=== PATIENT | male | born 1990 ===

== ENCOUNTER 2017-12-21 00:06 | Inpatient (IN) | payer MEDICAID, OTHER ==
--- NOTE | 2017-12-21 01:06 | C.PDOC ---
History Of Present Illness 27 yeas old male with Hx of bipolar disorder presents to ED for paranoid ideation. Denies any other physical complaints. Patient is loud, combative and agitated in ER. Time Seen by Provider: 12/21/17 01:05 Chief Complaint (Nursing): Psychiatric Evaluation History Per: Patient History/Exam Limitations: no limitations Onset/Duration Of Symptoms: Hrs Current Symptoms Are (Timing): Still Present Suicide/Self Injury Attempted (Context): None Modifying Factor(s): None Associated Symptoms: Agitation. denies: Suicidal Thoughts, Suicidal Plan Involuntary Hold By: None Recent travel outside of the [place]: No Past Medical History Reviewed: Historical Data, Nursing Documentation, Vital Signs Vital Signs: Last Vital Signs Temp 98.5 F 12/21/17 05:27 Pulse 81 12/21/17 05:27 Resp 16 12/21/17 05:27 BP 145/76 12/21/17 05:27 Pulse Ox 98 12/21/17 05:27 - Medical History PMH: Anxiety, Bipolar Disorder Surgical History: No Surg Hx Family History: States: No Known Family Hx - Social History Hx Alcohol Use: No Hx Substance Use: No - Immunization History Hx Tetanus Toxoid Vaccination: No Hx Influenza Vaccination: No Hx Pneumococcal Vaccination: No Review Of Systems Constitutional: Negative for: Fever, Chills Gastrointestinal: Negative for: Nausea, Vomiting, Abdominal Pain, Diarrhea Skin: Negative for: Rash Neurological: Negative for: Weakness, Numbness Psych: Positive for: Other (Paranoid ideation ). Negative for: Suicidal ideation Physical Exam - Physical Exam Appears: Non-toxic, No Acute Distress, Combative, Agitated Skin: Warm, Dry Head: Normacephalic Eye(s): bilateral: Normal Inspection Oral Mucosa: Moist Neck: Supple Chest: Symmetrical Cardiovascular: Rhythm Regular Respiratory: No Rales, No Rhonchi, No Wheezing Gastrointestinal/Abdominal: Soft, No Tenderness, No Distention Extremity: Normal ROM Extremity: Bilateral: Atraumatic, Normal Color And Temperature, Normal ROM Neurological/Psych: Oriented x3, Normal Speech (Speaking in full sentences ), Other (No focal deficits ) Gait: Steady ED Course And Treatment - Laboratory Results Result Diagrams: 12/21/17 01:15 12/21/17 01:15 O2 Sat by Pulse Oximetry: 98 (RA) Pulse Ox Interpretation: Normal Progress Note: Administered Ativan and Geodon Cap. Ordered blood work and urinalysis. Crisis notified. Disposition Discussed With Dr.: Lyndon Welch Comment: accepted the pt on his service and took over the care at 5:37 AM Doctor Will See Patient In The: Hospital Counseled Patient/Family Regarding: Studies Performed, Diagnosis - Disposition Disposition: HOSPITALIZED Disposition Time: 01:06 Condition: FAIR Forms: [facility] ([place]) - POA Present On Arrival: Poor Glycemic Control - Clinical Impression Clinical Impression: Manic bipolar I disorder - Scribe Statement The provider has reviewed the documentation as recorded by the Scribe Vandana Esparza All medical record entries made by the Scribe were at my direction and personally dictated by me. I have reviewed the chart and agree that the record accurately reflects my personal performance of the history, physical exam, medical decision making, and the department course for this patient. I have also personally directed, reviewed, and agree with the discharge instructions and disposition. Decision To Admit - Pt Status Changed To: Hospital Disposition Of: Inpatient - Admit Certification Admit to Inpatient:: After my assessment, the patient will require hospitalization for at least two midnights. This is because of the severity of symptoms shown, intensity of services needed, and/or the medical risk in this patient being treated as an outpatient. - InPatient: Physician Admission Certification: I certify that this patient requires 2 or more midnights of care for the following reason:: After my assessment, the patient will require hospitalization for at least two midnights. This is because of the severity of symptoms shown, intensity of services needed, and/or the medical risk in this patient being treated as an outpatient. - . Bed Request Type: Psychiatry Admitting Physician: Lyndon Welch Patient Diagnosis: Manic bipolar I disorder
[2017-12-21 01:20] LABS: BASO % 0.5 % (0.0-2.0); EOS % 0.4 % (0.0-4.0); HEMOGLOBIN 15.3 g/dL (12.0-18.0); LYMPH # 2.4 K/uL (1.0-4.3); LYMPH % 24.6 % (20.0-40.0); MEAN CELL VOLUME 88.8 fL (80.0-94.0); MEAN CORPUSCULAR HEMOGLOBIN 30.9 pg (27.0-31.0); MEAN CORPUSCULAR HGB CONC 34.8 g/dL (33.0-37.0); MEAN PLATELET VOLUME 8.4 fL (7.2-11.7); MONO # 0.6 K/uL (0.0-0.8); MONO % 5.7 % (0.0-10.0); NEUT # 6.8 K/uL (1.8-7.0); NEUT % 68.8 % (50.0-75.0); RBC 4.94 Mil/uL (4.40-5.90); RED CELL DISTRIBUTION WIDTH 13.9 % (11.5-14.5); WHITE BLOOD COUNT 9.9 K/uL (4.8-10.8)
[2017-12-21 01:29] LABS: SQUAMOUS EPITHIAL < 1 /hpf (0-5); URINE BILIRUBIN NEGATIVE (NEGATIVE); URINE BLOOD NEGATIVE (NEGATIVE); URINE CLARITY Clear (Clear); URINE COLOR Yellow (YELLOW); URINE GLUCOSE (UA) NORMAL (Normal); URINE LEUKOCYTE ESTERASE NEG Leu/uL (Negative); URINE PROTEIN NEGATIVE (NEGATIVE)
[2017-12-21 01:34] LABS: ALB/GLOB RATIO 1.6 (1.0-2.1); ALT/SGPT 45 U/L (21-72); AST/SGOT 30 U/L (17-59); BLOOD UREA NITROGEN 32 mg/dL (9-20); CALCIUM 9.4 mg/dl (8.6-10.4); GFR AFRICAN-AMERICAN > 60; GFR NON-AFRICAN AMERICAN > 60
[2017-12-21 01:43] LABS: BARBITURATES, UR NEGATIVE (NEGATIVE); BENZODIAZEPINES, UR NEGATIVE (NEGATIVE); OPIATES, UR NEGATIVE (NEGATIVE); PHENCYCLIDINE, UR NEGATIVE (NEGATIVE)
--- NOTE | 2017-12-21 10:43 | PCM.BM ---
<La Wick - Last Filed: 12/21/17 10:46> Treatment Plan Problems - Problems identified on initial assessmt ineffective coping related to suicidal thoughts Date Initiated: 12/21/17 Time Initiated: 10:45 Assessment reference: NA Status: Active Treatment assets and liabiliti Patient Assests: cooperative, educated, ADL independent, good support system Patient Liabilities: financial problems - Milieu Protocol Maintain good personal hygiene: daily Encourage regular showers, daily Remind patient to perform daily oral care, every shift Assist patient to perform ADL's Conduct patient checks and document Observation sheet: Q15 minutes Maintain personal safety: every shift Educate patient to report safety concerns to staff, every shift Monitor environment for contraband/sharps Medication safety: Monitor for expected outcome, potential side effects: every shift, Assess barriers to learning: every shift, Assess readiness for medication education: every shift <Erin Gee - Last Filed: 12/23/17 14:09> Family Contact Family involvement: Patient does not wish Family/SO involvement Family contact: Patient declines to allow family contact at present - Goals for Treatment Patient goals for treatment: "I want to return to [facility]. " Discharge/Continuing Care - Education Needs Education Needs: Patient Medication, Patient Diagnosis/Disease Process, Patient Coping Skills - Discharge Discharge Criteria: Free of Suicidal thoughts, Free of paranoid thoughts, Free of agitation, Normal sleep pattern, Ability to care for self, No longer exhibiting s/s of withdrawal, Reduction of target symptoms Discharge to:: Home, With Family - Treatment Team Participation Discussed with Family/SO: No Was Patient/Family/SO present at Treatment Team Meeting: Yes <Lyndon Welch - Last Filed: 12/23/17 18:28> - Diagnosis (1) Severe manic bipolar 1 disorder with psychotic behavior Status: Acute Interventions: 12/23/17 18:28 * Assess/adjust medications daily and /or as needed * See patient on an individual basis 7x/week to assess symptoms of depression * Monitor for side effects & effectiveness of medications
--- NOTE | 2017-12-21 11:27 | PCM.PSYCH ---
Initial Psychiatric Evaluation - Initial Psychiatric Evaluation Type of Admission: Voluntary Legal Status: Capacity Chief Complaint (in patient's own words): People are bugging me History of Present Illness and Precipitating Events: Pt. is a 27 y/o employed male admitted in the hospital for Bipolar disorder. Pt was uncooperative, loud and reluctant to provide information. He stated that people are bugging him a lot including neighbors who are monitoring his activities and tried to hurt him. He stated that he is not able to sleep at [facility] due to racing thought for 3 days. Pt stated his medication Depakote Olanzapine was not helpful and Paroxetine make him calm down. He appeared with elated, speech is pressure, and expansive mood, He is walking here and there in the unit. He needs redirection. Per chart reviewed in ER pt informed his family that he wanted to come to ED because he was talking too much and not sleeping. Family also reports that Pt. has been paranoid and accusing the neighbors of talking about him. Pt. is presently attending outpatient treatment. Pt. does not remember the address where he sees his psychiatrist. Pt. reports taking Depakote 500mg PO; Paxil 20mg PO BID; Seroquel and Risperdal. Pt. does not know of the doses of the last two medications. Pt.'s reports dealing with a lot of stress at work. Pt. reports that he works for [employer]. Pt. reports that he lives with his mother and father and younger sister and older brother. Pt. reports that he graduated from high school and did one year of community college. Pt. reports that he does not know what career he plans to pursue. Pt. was cooperative and manic in the ED. Pt. was medicated with both Ativan and Geodon. Pt. denies any history of drugs or S/H ideation. Pt. also admits to auditory hallucinations. Pt. denies history of violence and arrest. Pt. wore glasses and he maintained sporadic eye contact. Pt. mood was anxious and affect was guarded. Past Psychiatric History - Past Psychiatric History At [facility]: pt refuse to answer. Per chart review he had [facility] History of Abuse: denied History of ETOH/Drug Use: denied History of Family Illness: Pt.s family reports that Pt. older brother also suffers from mental illness. Brother returned from the service and has been receiving psychiatric treatment. Pt.s grandfather also suffers from schizophrenia. Pertinent Medical Hx (Current Medical&Sleep Prob, Allergies): Allergies Allergy/AdvReac Type Severity Reaction Status Date / Time No Known Allergies Allergy Unverified 12/21/17 00:10 Clonazepam [Klonopin] 0.5 mg PO DAILY 12/21/17 Divalproex [Depakote ER] 500 mg PO DAILY 12/21/17 Review of Systems - Review of Systems All systems: reviewed and no additional remarkable complaints except (please see HPI) Mental Status Examination - Personal Presentation Personal Presentation: Looks stated age, Dressed appropriate to season - Affect Affect: Constricted - Motor Activity Motor Activity: Psychomotor Agitation - Reliability in Providing Information Reliability in Providing Information: Poor, due to alteration in thoughts, Poor , due to altered mood - Speech Speech: Disorganized - Mood Mood: Anxious, Euphoric (elated mood) - Formal Thought Process Formal Thought Process: Hallucinations, Delusions, Paranoia - Hallucinations/Delusions Hallucinations: Auditory - Obsessions/Compulsions Obsessions: None Compulsions: None - Cognitive Functions Orientation: Person, Place, Situation, Time Sensorium: Alert Attention/Concentration: Easily distracted Judgement: Imparied, as evidence by: Lack of insight into illness, Intact, as evidence by: Insight regarding need for hospitalization Memory: Recent intact, as evidence by: Ability to recall events of the day - Risk Risk: Diminished functioning - Strength & Assets Inventory Strength & Assets Inventory: Family support, Interests/hobbies - Limitations Limitations: Other (mental illness) DSM 5 DX - DSM 5 DSM 5 Diagnosis: Bipolar 1 D/o mre manic with psychotic features r/o Schizoaffective disorder - Recommended/Plan of Treatment Treatment Recommendations and Plan of Treatment: Start Risperdal 0.5 mg po BID for mood stabilization and psychosis Will titrate his medication according to his response. PRN meds for psychosis and alis Psychoeducation Supportive therapy provided Medication benefits and side effects discussed with the pt. Will consider to start [place] for his manic symptoms. Monitor vitals. Refer to after care plan Time 33 minutes
[2017-12-23] MEDS: Divalproex 500 mg DR Tab PO SCH ×2 (01:01→22:36)
--- NOTE | 2017-12-23 18:32 | PCM.PYCHPN ---
Psychiatric Progress Note - Psychiatric Progress Note Patient seen today, length of contact: 15 minutes Patient Chief Complaint: My neighbors were talking about me. Problems Identified/Issues Discussed: Patient seen, chart reviewed, case discussed with the staff. Issues related to illness and treatment were discussed with the patient and the staff. Reported compliant with treatment with no adverse affects. Tolerating treatment very well. During evaluation patient was hypomanic, irritable, disorganized, paranoid and partially cooperative. Reported not feeling better and also decreased sleep. At the time of evaluation patient was awake alert oriented 3, was delusional and paranoid, no auditory or visual hallucinations and no suicidal ideation or homicidal ideations. Medical Problems: None reported Diagnostic Results: Reviewed Medication Change: No Medical Record Reviewed: Yes Mental Status Examination - Cognitive Function Orientation: Person, Place, Situation, Time Memory: Intact Attention: WNL Concentration: WNL Association: Loose Fund of Knowledge: WNL Decription of patient's judgement and insights: Poor - Mood Mood: Other (Angry) - Affect Affect: Flat - Speech Speech: Appropriate - Formal Thought Process Formal Thought Process: Delusions, Paranoia, Loosening of associations, Flight of ideas - Suicidal Ideation Suicidal Ideation: No - Homicidal Ideation Homicidal Ideation: No Goal/Treatment Plan - Goal/Treatment Plan Need for Continued Stay: Remain at risks for inpatient hospitalization, Discharge may exacerbated symptoms, Severe functional impairment Progress Toward Problem(s) and Goals/Treatment Plan: Patient education. Supportive therapy. Continue treatment as before. Estimated Date of D/C: 12/30/17 - Smoking Cessation Smoking Cessation Initiated: No
--- NOTE | 2017-12-23 18:37 | PCM.PYCHPN ---
Psychiatric Progress Note - Psychiatric Progress Note Patient seen today, length of contact: 15 minutes Patient Chief Complaint: I'm feeling little better. When can I go home. Problems Identified/Issues Discussed: Patient seen, chart reviewed, case discussed with the staff. Issues related to illness and treatment were discussed with the patient and the staff. Reported compliant with treatment with no adverse affects. Tolerating treatment very well. During evaluation patient was less hypomanic, irritable, disorganized, paranoid and more cooperative. Reported feeling little better. Better sleep. At the time of evaluation patient was awake alert oriented 3, no delusional, no auditory or visual hallucinations and no suicidal ideation or homicidal ideations. Medical Problems: None reported Diagnostic Results: Reviewed DSM 5 Symptoms Update: Some improvement with treatment Medication Change: No Medical Record Reviewed: Yes Mental Status Examination - Cognitive Function Orientation: Person, Place, Situation, Time Memory: Intact Attention: WNL Concentration: WNL Association: [facility] Fund of Knowledge: [facility] Decription of patient's judgement and insights: Good - Mood Mood: Depressed - Affect Affect: Flat - Speech Speech: Appropriate - Formal Thought Process Formal Thought Process: Delusions, Paranoia - Suicidal Ideation Suicidal Ideation: No - Homicidal Ideation Homicidal Ideation: No Goal/Treatment Plan - Goal/Treatment Plan Need for Continued Stay: Remain at risks for inpatient hospitalization, Discharge may exacerbated symptoms, Severe functional impairment Progress Toward Problem(s) and Goals/Treatment Plan: Patient education. Supportive therapy. Continue treatment as before. Estimated Date of D/C: 12/30/17 - Smoking Cessation Smoking Cessation Initiated: No Reason for not providing: Patient doesn't smoke cigarettes
--- NOTE | 2017-12-24 14:38 | PCM.PYCHPN ---
Psychiatric Progress Note - Psychiatric Progress Note Patient seen today, length of contact: 15 minutes Patient Chief Complaint: I'm feeling little better. When can I go home. Problems Identified/Issues Discussed: Patient seen, chart reviewed, case discussed with the staff. Issues related to illness and treatment were discussed with the patient and the staff. Reported compliant with treatment with no adverse affects. Tolerating treatment very well. During evaluation patient was less hypomanic, irritable, disorganized, paranoid and more cooperative. Reported feeling little better. Better sleep. At the time of evaluation patient was awake alert oriented 3, no delusional, no auditory or visual hallucinations and no suicidal ideation or homicidal ideations. Medical Problems: None reported Diagnostic Results: Reviewed DSM 5 Symptoms Update: Improving with treatment Medication Change: No Medical Record Reviewed: Yes Mental Status Examination - Cognitive Function Orientation: Person, Place, Situation, Time Memory: Intact Attention: WNL Concentration: WNL Association: WN Fund of Knowledge: [facility] Decription of patient's judgement and insights: Good - Mood Mood: Depressed - Affect Affect: Flat - Speech Speech: Appropriate - Formal Thought Process Formal Thought Process: No Impairment Psychotic Thoughts and Behaviors: None - Suicidal Ideation Suicidal Ideation: No - Homicidal Ideation Homicidal Ideation: No Goal/Treatment Plan - Goal/Treatment Plan Need for Continued Stay: Remain at risks for inpatient hospitalization, Discharge may exacerbated symptoms, Severe functional impairment Progress Toward Problem(s) and Goals/Treatment Plan: Patient education. Supportive therapy. Continue treatment as before. Estimated Date of D/C: 12/30/17 - Smoking Cessation Smoking Cessation Initiated: No
[2017-12-24] MEDS: Divalproex 500 mg DR Tab PO SCH (21:07)
--- NOTE | 2017-12-25 18:02 | PCM.PYCHPN ---
Psychiatric Progress Note - Psychiatric Progress Note Patient seen today, length of contact: 15 minutes Patient Chief Complaint: I'm feeling better. Problems Identified/Issues Discussed: Patient seen, chart reviewed, case discussed with the staff. Issues related to illness and treatment were discussed with the patient and the staff. Reported compliant with treatment with no adverse affects. Tolerating treatment very well. Reported feeling better. Better sleep. Patient denied any delusions or hallucinations. Staff reported that patient is still paranoid. We'll increase the dose of Risperdal 2 mg twice a day. At the time of evaluation patient was awake alert oriented 3, no delusional, no auditory or visual hallucinations and no suicidal ideation or homicidal ideations. Medical Problems: None reported Diagnostic Results: Reviewed DSM 5 Symptoms Update: Improving with treatment Medication Change: No Medical Record Reviewed: Yes Mental Status Examination - Cognitive Function Orientation: Person, Place, Situation, Time Memory: Intact Attention: WNL Concentration: WNL Association: WN Fund of Knowledge: WN Decription of patient's judgement and insights: Good - Mood Mood: Depressed - Affect Affect: Flat - Speech Speech: Appropriate - Formal Thought Process Formal Thought Process: No Impairment Psychotic Thoughts and Behaviors: None - Suicidal Ideation Suicidal Ideation: No - Homicidal Ideation Homicidal Ideation: No Goal/Treatment Plan - Goal/Treatment Plan Need for Continued Stay: Remain at risks for inpatient hospitalization, Discharge may exacerbated symptoms, Severe functional impairment Progress Toward Problem(s) and Goals/Treatment Plan: Patient education. Supportive therapy. We will increase the dose of Risperdal to 1 mg twice a day. Continue rest of the treatment as before. Estimated Date of D/C: 12/30/17 - Smoking Cessation Smoking Cessation Initiated: No
[2017-12-25] MEDS: Divalproex 500 mg DR Tab PO SCH (22:16)
[2017-12-26 06:31] VITALS: O2SAT 100
[2017-12-26] MEDS: Divalproex 500 mg DR Tab PO SCH (21:11)
[2017-12-27] MEDS: Divalproex 500 mg DR Tab PO SCH ×2 (09:01→17:42)
[2017-12-28] MEDS: Divalproex 500 mg DR Tab PO SCH ×2 (10:03→17:59)
--- NOTE | 2017-12-28 14:28 | PCM.PYCHPN ---
Psychiatric Progress Note - Psychiatric Progress Note Patient seen today, length of contact: 15 minutes Patient Chief Complaint: I am doing fine.' Problems Identified/Issues Discussed: Patient seen and evaluated, chart reviewed and discussed with the nurse. Patient remained disorganized and internally preoccupied. Patient remained isolated, confined and withdrawn. He still reports of hearing voices. Patient still appears paranoid and delusional. He denies any suicidal ideation or homicidal ideation. He is taking medication and denies any side effects. Symptoms are improving but needs more time for stabilization. Supportive therapy and psychoeducation were given. Medication Change: No Medical Record Reviewed: Yes Mental Status Examination - Cognitive Function Orientation: Person, Place, Situation, Time Memory: Intact Attention: Poor Concentration: Poor Association: Loose Fund of Knowledge: Poor - Mood Mood: Depressed, Anxious - Affect Affect: Flat - Speech Speech: Appropriate - Formal Thought Process Formal Thought Process: Delusions, Paranoia, Loosening of associations - Suicidal Ideation Suicidal Ideation: No - Homicidal Ideation Homicidal Ideation: No Goal/Treatment Plan - Goal/Treatment Plan Need for Continued Stay: Remain at risks for inpatient hospitalization, Discharge may exacerbated symptoms, Severe functional impairment Progress Toward Problem(s) and Goals/Treatment Plan: Schizoaffective disorder Risperdal 2 mg po BID Depakote 250 mg PO BID Cogentin 1 mg PO BID Klonopn 1 mg PO BID Will titrate his medication according to his response. PRN meds for psychosis and alis Psychoeducation Supportive therapy provided Medication benefits and side effects discussed with the pt. Will consider to start [place] for his manic symptoms. Monitor vitals. Estimated Date of D/C: 12/30/17
[2017-12-29] MEDS: Divalproex 500 mg DR Tab PO SCH ×2 (09:41→18:00)
--- NOTE | 2017-12-29 16:51 | PCM.PYCHPN ---
Psychiatric Progress Note - Psychiatric Progress Note Patient seen today, length of contact: 15 minutes Patient Chief Complaint: I am doing fine.' Problems Identified/Issues Discussed: Mr. Gerber says he felt frustrated because he wants to leave and he doesn't understand why he is being kept. He said he screamed a little last night out of frustration saying, "that is how I express myself." He feels anxious just being in the hospital. He does not have suicidal/homicidal thoughts. He has gone to group activities. Other than frustration, he reports feeling largely unchanged since yesterday - his sleep is good, appetite good, thoughts are stable, amount of pacing is the same. Medication Change: No Medical Record Reviewed: Yes Mental Status Examination - Cognitive Function Orientation: Person, Place, Situation, Time Memory: Intact Attention: Poor Concentration: Poor Association: Loose Fund of Knowledge: Poor - Mood Mood: Depressed, Anxious - Affect Affect: Flat - Speech Speech: Appropriate - Formal Thought Process Formal Thought Process: Delusions, Paranoia, Loosening of associations - Suicidal Ideation Suicidal Ideation: No - Homicidal Ideation Homicidal Ideation: No Goal/Treatment Plan - Goal/Treatment Plan Need for Continued Stay: Remain at risks for inpatient hospitalization, Discharge may exacerbated symptoms, Severe functional impairment Progress Toward Problem(s) and Goals/Treatment Plan: Schizoaffective disorder Risperdal 2 mg po BID Depakote 250 mg PO BID Cogentin 1 mg PO BID Klonopn 1 mg PO BID Will titrate his medication according to his response. PRN meds for psychosis and alis Psychoeducation Supportive therapy provided Medication benefits and side effects discussed with the pt. Will consider to start [place] for his manic symptoms. Monitor vitals. Estimated Date of D/C: 12/30/17
[2017-12-30] MEDS: Divalproex 500 mg DR Tab PO SCH ×2 (10:03→17:11)
--- NOTE | 2017-12-30 11:39 | PCM.BM ---
<Elis Beltran - Last Filed: 12/30/17 11:38> Treatment Plan Problems - Problems identified on initial assessmt ineffective coping related to suicidal thoughts Date Initiated: 12/21/17 Time Initiated: 10:45 Assessment reference: NA Status: Active Treatment assets and liabiliti Patient Assests: cooperative, educated, ADL independent, good support system Patient Liabilities: financial problems - Milieu Protocol Maintain good personal hygiene: daily Encourage regular showers, daily Remind patient to perform daily oral care, every shift Assist patient to perform ADL's Conduct patient checks and document Observation sheet: Q15 minutes Maintain personal safety: every shift Educate patient to report safety concerns to staff, every shift Monitor environment for contraband/sharps Medication safety: Monitor for expected outcome, potential side effects: every shift, Assess barriers to learning: every shift, Assess readiness for medication education: every shift Milieu Narrative: Schizoaffective disorder Risperdal 2 mg po BID Depakote 250 mg PO BID Cogentin 1 mg PO BID Klonopn 1 mg PO BID Will titrate his medication according to his response. PRN meds for psychosis and alis Psychoeducation Supportive therapy provided Medication benefits and side effects discussed with the pt. Will consider to start [place] for his manic symptoms. Monitor vitals. Family Contact Family involvement: Patient does not wish Family/SO involvement Family contact: Patient declines to allow family contact at present - Goals for Treatment Patient goals for treatment: "I want to return to [facility]. " Discharge/Continuing Care - Education Needs Education Needs: Patient Medication, Patient Diagnosis/Disease Process, Patient Coping Skills - Discharge Discharge Criteria: Free of Suicidal thoughts, Free of paranoid thoughts, Free of agitation, Normal sleep pattern, Ability to care for self, No longer exhibiting s/s of withdrawal, Reduction of target symptoms Discharge to:: Home, With Family - Treatment Team Participation Patient/Family/SO Statement: Schizoaffective disorder Risperdal 2 mg po BID Depakote 250 mg PO BID Cogentin 1 mg PO BID Klonopn 1 mg PO BID Will titrate his medication according to his response. PRN meds for psychosis and alis Psychoeducation Supportive therapy provided Medication benefits and side effects discussed with the pt. Will consider to start [place] for his manic symptoms. Monitor vitals. Discussed with Family/SO: No Was Patient/Family/SO present at Treatment Team Meeting: Yes Treatment Plan Review - Problem ineffective coping related to suicidal thoughts Time Initiated: 10:45 - Discharge / Continuing Care Discharge to:: Home Behavioral Health Services: Partial hospital Health Needs: Medications/Rx <Katiuska Dukes - Last Filed: 12/30/17 11:44> Treatment Plan Review - Problem ineffective coping related to suicidal thoughts Date Initiated: 12/30/17 Progress toward outcomes: improved
[2017-12-31] MEDS: Divalproex 500 mg DR Tab PO SCH ×2 (10:01→17:27)
[2017-12-31] MEDS ORDERED: Paliperidone Palmitate 234 MG/1.5 ML SYR IM ONE (15:00)
--- NOTE | 2017-12-31 15:04 | PCM.PYCHPN ---
Psychiatric Progress Note - Psychiatric Progress Note Patient seen today, length of contact: 15 minutes Patient Chief Complaint: I am doing fine.' Problems Identified/Issues Discussed: Mr. Gerber is doing better than yesterday because he is no longer angry about not being discharged until Tuesday. Sleep okay, interest level okay, guilt over not helping brother, energy same, concentration is bad, appetite is bad, and he says he is talking faster. He does not have hallucinations, nor suicidal/ homicidal thoughts. His irritation is better than yesterday. Medication Change: No Medical Record Reviewed: Yes Mental Status Examination - Cognitive Function Orientation: Person, Place, Situation, Time Memory: Intact Attention: Poor Concentration: Poor Association: Loose Fund of Knowledge: Poor - Mood Mood: Depressed, Anxious - Affect Affect: Flat - Speech Speech: Appropriate - Formal Thought Process Formal Thought Process: Delusions, Paranoia, Loosening of associations - Suicidal Ideation Suicidal Ideation: No - Homicidal Ideation Homicidal Ideation: No Goal/Treatment Plan - Goal/Treatment Plan Need for Continued Stay: Remain at risks for inpatient hospitalization, Discharge may exacerbated symptoms, Severe functional impairment Progress Toward Problem(s) and Goals/Treatment Plan: Schizoaffective disorder Risperdal 2 mg po BID Depakote 250 mg PO BID Cogentin 1 mg PO BID Klonopn 1 mg PO BID Will titrate his medication according to his response. PRN meds for psychosis and alis Psychoeducation Supportive therapy provided Medication benefits and side effects discussed with the pt. Will consider to start [place] for his manic symptoms. Monitor vitals. Estimated Date of D/C: 12/30/17
[2018-01-01 06:46] VITALS: RESP 18
[2018-01-01] MEDS: Divalproex 500 mg DR Tab PO SCH ×2 (09:41→17:45)
[2018-01-02 06:53] VITALS: BP 104/65; PULSE 100; TEMP 97.6
[2018-01-02] MEDS: Divalproex 500 mg DR Tab PO SCH (10:18)
--- NOTE | 2018-01-02 10:48 | PCM.PYCHDC ---
Mental Status Examination - Mental Status Examination Orientation: Person, Place, Situation, Time Memory: Intact Mood: Neutral Affect: Constricted Speech: Soft Attention: WNL Concentration: WNL Association: WNL Fund of Knowledge: WNL Formal Thought Process: No Impairment Description of patient's judgement and insight: good, fair Psychotic Thoughts and Behaviors: denies any AVH Suicidal Ideation: No Current Homicidal Ideation?: No Discharge Summary - Discharge Note Consultations:: List each consultation separately and include: 1. Reason for request. 2. Findings. 3. Follow-up Summary of Hospital Course include:: 1. Description of specific treatment plan utilized for patients during their course of treatmen. 2. Summarize the time- course for resolution of acute symptoms and/or regressed behaviors. 3. Describe issues identified and worked on during hospitalization. 4. Describe medication utilized. 5. Describe medical problems identified and treated. 6. Reassessment of suicide risk - Final Diagnosis (DSM 5) Condition upon Discharge: FAIR Disposition: HOME/ ROUTINE Follow-up Treatment Plan: Schizoaffective disorder Risperdal 2 mg po BID Depakote 250 mg PO BID Cogentin 1 mg PO BID Klonopn 1 mg PO BID Will titrate his medication according to his response. PRN meds for psychosis and alis Psychoeducation Supportive therapy provided Medication benefits and side effects discussed with the pt. Will consider to start [place] for his manic symptoms. Monitor vitals. Prescriptions/Medication Reconciliation: Benztropine [Cogentin] 1 mg PO BID #60 tab Divalproex [Depakote DR] 500 mg PO BID #60 tcp Paliperidone Palmitate [Invega Sustenna] 234 mg IM ONCE #1 syr risperiDONE [RisperDAL Tab] 3 mg PO BID #60 tab traZODone [Desyrel] 100 mg PO HS PRN #30 tab PRN Reason: Insomnia
== END 2018-01-02 12:28 | disposition home or self-care (01) | DRG 430 ==
LOC: SUPCPDRO 00:06 → C.ER 00:06 → C.5E 05:36
PROC: GZHZZZZ Group Psychotherapy (ICD-10-PCS; principal; 2017-12-21)
PROC: GZ56ZZZ Individual Psychotherapy, Supportive (ICD-10-PCS; 2017-12-21)
DX: F25.9 Schizoaffective disorder, unspecified (principal); F31.13 Bipolar disorder, current episode manic without psychotic features, severe

== ENCOUNTER 2018-02-04 21:10 | Emergency (ER) | payer MEDICAID, OTHER ==
[2018-02-04 21:53] VITALS: RESP 16; TEMP 98
[2018-02-04] MEDS ORDERED: Divalproex 500 mg DR Tab PO STA (22:11)
[2018-02-04 22:19] LABS: SQUAMOUS EPITHIAL 1 /hpf (0-5); URINE BILIRUBIN NEGATIVE (NEGATIVE); URINE BLOOD NEGATIVE (NEGATIVE); URINE CLARITY Clear (Clear); URINE COLOR Yellow (YELLOW); URINE GLUCOSE (UA) NORMAL (Normal); URINE LEUKOCYTE ESTERASE NEG Leu/uL (Negative); URINE PROTEIN NEGATIVE (NEGATIVE)
[2018-02-04] MEDS ORDERED: Divalproex 500 mg DR Tab PO ONE (22:20)
[2018-02-04 22:25] LABS: BASO # 0.1 K/uL (0.0-0.2); EOS # 0.1 K/uL (0.0-0.7); LYMPH # 2.2 K/uL (1.0-4.3); NEUT # 4.8 K/uL (1.8-7.0)
[2018-02-04 22:32] LABS: BASO % 0.8 % (0.0-2.0); EOS % 1.7 % (0.0-4.0); HEMOGLOBIN 15.9 g/dL (12.0-18.0); LYMPH % 29.3 % (20.0-40.0); MEAN CELL VOLUME 89.2 fL (80.0-94.0); MEAN CORPUSCULAR HEMOGLOBIN 30.9 pg (27.0-31.0); MEAN CORPUSCULAR HGB CONC 34.7 g/dL (33.0-37.0); MEAN PLATELET VOLUME 9.8 fL (7.2-11.7); MONO # 0.4 K/uL (0.0-0.8); MONO % 5.9 % (0.0-10.0); NEUT % 62.3 % (50.0-75.0); NRBC % 0.1 % (0.0-2.0); RBC 5.14 Mil/uL (4.40-5.90); RED CELL DISTRIBUTION WIDTH 13.1 % (11.5-14.5); WHITE BLOOD COUNT 7.7 K/uL (4.8-10.8)
[2018-02-04 22:33] LABS: BARBITURATES, UR NEGATIVE (NEGATIVE); BENZODIAZEPINES, UR NEGATIVE (NEGATIVE); OPIATES, UR NEGATIVE (NEGATIVE); PHENCYCLIDINE, UR NEGATIVE (NEGATIVE)
[2018-02-04 22:37] LABS: CALCIUM 9.3 mg/dl (8.6-10.4); GFR NON-AFRICAN AMERICAN > 60
[2018-02-04 22:44] LABS: ALB/GLOB RATIO 1.4 (1.0-2.1); ALBUMIN 4.6 g/dL (3.5-5.0); ALT/SGPT 27 U/L (21-72); AST/SGOT 50 U/L (17-59); BLOOD UREA NITROGEN 24 mg/dL (9-20)
--- NOTE | 2018-02-04 23:18 | C.PDOC ---
History Of Present Illness 27 year old male patient presents to the ER with c/o alis. Patient notes he ran out of his bipolar medication for the past x3 days: cogentin, depakote, and risperdal. Patient denies SOB, SI/HI, dizziness and lightheadedness. Time Seen by Provider: 02/04/18 22:02 Chief Complaint (Nursing): Psychiatric Evaluation History Per: Patient History/Exam Limitations: no limitations Onset/Duration Of Symptoms: Days (x3) Current Symptoms Are (Timing): Still Present Past Medical History Vital Signs: Last Vital Signs Temp 98 F 02/04/18 21:51 Pulse 90 02/04/18 21:51 Resp 16 02/04/18 21:51 BP 130/80 02/04/18 21:51 Pulse Ox 99 02/04/18 23:30 - Medical History PMH: Anxiety, Bipolar Disorder - [employer] Procedures GROUP PSYCHOTHERAPY (12/21/17) INDIVIDUAL PSYCHOTHERAPY, SUPPORTIVE (12/21/17) Family History: States: No Known Family Hx - Social History Hx Alcohol Use: No Hx Substance Use: No - Immunization History Hx Tetanus Toxoid Vaccination: No Hx Influenza Vaccination: No Hx Pneumococcal Vaccination: No Review Of Systems Except As Marked, All Systems Reviewed And Found Negative. Cardiovascular: Negative for: Light Headedness Respiratory: Negative for: Shortness of Breath Neurological: Positive for: Other (alis). Negative for: Dizziness Physical Exam - Physical Exam Appears: Well, Non-toxic, No Acute Distress Skin: Normal Color, Warm, Dry Head: Atraumatic, Normacephalic Eye(s): bilateral: Normal Inspection Neck: Normal ROM, Supple Chest: Symmetrical Cardiovascular: Rhythm Regular Back: No CVA Tenderness Extremity: Normal ROM (x4) Neurological/Psych: Oriented x3, Normal Speech, Normal Motor, Normal Sensation, Normal Reflexes, Other (hyperkinetic; calm ) Gait: Steady ED Course And Treatment - Laboratory Results Result Diagrams: 02/04/18 22:22 02/04/18 22:22 Lab Interpretation: Normal (UDS/alcohol wnl) O2 Sat by Pulse Oximetry: 99 (RA) Pulse Ox Interpretation: Normal Reevaluation Time: 23:51 Reassessment Condition: Improved - Physician Consult Information Outcome Of Conversation: 2350: d/w Crisis, ok for d/c and opt f/u. Medical Decision Making Medical Decision Making: Impression: alis Plans: -- drug screen -- blood work -- cogentin -- depakote -- risperdal -- UA mild managable alis- bipolar ran out of home meds x 3 days refill for 1 week until opt f/u. Disposition Doctor Will See Patient In The: Office Counseled Patient/Family Regarding: Studies Performed, Diagnosis - Disposition Disposition: HOME/ ROUTINE Disposition Time: 23:52 Condition: GOOD Forms: NuORDER (Malay) - Clinical Impression Clinical Impression: Manic bipolar I disorder - Scribe Statement The provider has reviewed the documentation as recorded by the Cortney Wise Do Provider Attestation: All medical record entries made by the Aissatouibe were at my direction and personally dictated by me. I have reviewed the chart and agree that the record accurately reflects my personal performance of the history, physical exam, medical decision making, and the department course for this patient. I have also personally directed, reviewed, and agree with the discharge instructions and disposition.
[2018-02-05 00:12] VITALS: BP 140/70; PULSE 87; O2SAT 100
== END 2018-02-05 00:11 | disposition home or self-care (01) ==
LOC: C.ER 21:10
DX: F31.9 Bipolar disorder, unspecified (principal)

== ENCOUNTER 2018-02-11 12:14 | Emergency (ER) | payer OTHER ==
[2018-02-11 12:21] VITALS: BP 137/80; PULSE 83; RESP 18; TEMP 97.5; O2SAT 97; BMI 33.9
--- NOTE | 2018-02-11 13:12 | C.PDOC ---
History Of Present Illness 27 year old male presents to the emergency department for psychiatric medication refill. Patient states he was admitted to the ER from 12/21/17 to and was seen in the ed on 02/04/18 where he was given 1 week of refill. He reports he goes to a [facility] program on [address] [facility] and that they were unable to get him an appt . Patient reports no physical or psychiatric complaints today and denies suicidal or homicidal ideation, hearing voices, or hallucinations. Time Seen by Provider: 02/11/18 12:27 Chief Complaint (Nursing): Med Refill History Per: Patient History/Exam Limitations: no limitations Past Medical History Reviewed: Historical Data, Nursing Documentation, Vital Signs Vital Signs: Last Vital Signs Temp 97.5 F L 02/11/18 12:23 Pulse 83 02/11/18 12:23 Resp 18 02/11/18 12:23 BP 137/80 02/11/18 12:23 Pulse Ox 97 02/11/18 21:53 - Medical History PMH: Anxiety, Bipolar Disorder Denies: Diabetes, Hepatitis, HIV, HTN, Seizures, Sexually Transmitted Disease - [employer] Procedures GROUP PSYCHOTHERAPY (12/21/17) INDIVIDUAL PSYCHOTHERAPY, SUPPORTIVE (12/21/17) Family History: States: No Known Family Hx - Social History Hx Alcohol Use: No Hx Substance Use: No - Immunization History Hx Tetanus Toxoid Vaccination: No Hx Influenza Vaccination: No Hx Pneumococcal Vaccination: No Review Of Systems Constitutional: Negative for: Fever, Chills Cardiovascular: Negative for: Chest Pain Respiratory: Negative for: Shortness of Breath Gastrointestinal: Negative for: Nausea, Vomiting Neurological: Negative for: Weakness, Numbness Psych: Negative for: Suicidal ideation, Other (homicidal ideation; not hearing voices; no hallucinations) Physical Exam - Physical Exam Appears: Non-toxic, No Acute Distress Skin: Warm, Dry, No Rash Head: Atraumatic, Normacephalic Eye(s): bilateral: Normal Inspection Oral Mucosa: Moist Neck: Supple Cardiovascular: Rhythm Regular, No Murmur Respiratory: Normal Breath Sounds, No Rales, No Rhonchi, No Wheezing Gastrointestinal/Abdominal: Soft, No Tenderness Neurological/Psych: Oriented x3, Normal Speech ED Course And Treatment O2 Sat by Pulse Oximetry: 97 (RA) Pulse Ox Interpretation: Normal Disposition Counseled Patient/Family Regarding: Diagnosis, Need For Followup, Rx Given - Disposition Disposition: HOME/ ROUTINE Disposition Time: 13:09 Condition: GOOD Additional Instructions: Please go to your day program at [facility] on Tuesday and let them know that you need to see the psychiatrist as soon as possible for refill medications - you are only getting enough medication until Tuesday. If [facility] program is unable to get you refills, then got to the [facility] program- you have the information flyer. 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 - Scribe Statement The provider has reviewed the documentation as recorded by the Aissatouibkelsey Feng All medical record entries made by the Aissatouibkelsey were at my direction and personally dictated by me. I have reviewed the chart and agree that the record accurately reflects my personal performance of the history, physical exam, medical decision making, and the department course for this patient. I have also personally directed, reviewed, and agree with the discharge instructions and disposition.
== END 2018-02-11 13:28 | disposition home or self-care (01) ==
LOC: C.ER 12:14
DX: Z76.0 Encounter for issue of repeat prescription (principal); F31.9 Bipolar disorder, unspecified

== ENCOUNTER 2018-02-26 18:16 | Inpatient (IN) | payer MEDICAID, OTHER ==
[2018-02-26 18:37] VITALS: BMI 27.8
--- NOTE | 2018-02-26 19:14 | C.PDOC ---
History Of Present Illness 27 year old male with PMHx of bipolar disorder presents to the ED accompanied by father for agitation and flight of ideas. Patient is noncompliant with medications. He has no physical complaints. He denies any SI/HI. Time Seen by Provider: 02/26/18 18:57 Chief Complaint (Nursing): Psychiatric Evaluation History Per: Patient History/Exam Limitations: clinical condition Onset/Duration Of Symptoms: Days Current Symptoms Are (Timing): Still Present Suicide/Self Injury Attempted (Context): None Modifying Factor(s): None Associated Symptoms: Agitation Past Medical History Reviewed: Historical Data, Nursing Documentation, Vital Signs Vital Signs: Last Vital Signs Temp 98 F 02/26/18 19:41 Pulse 82 02/26/18 19:41 Resp 18 02/26/18 19:41 BP 103/79 02/26/18 19:41 Pulse Ox 98 02/26/18 19:41 - Medical History PMH: Anxiety, Bipolar Disorder Denies: Diabetes, Hepatitis, HIV, HTN, Seizures, Sexually Transmitted Disease Surgical History: No Surg Hx - [facility] Procedures GROUP PSYCHOTHERAPY (12/21/17) INDIVIDUAL PSYCHOTHERAPY, SUPPORTIVE (12/21/17) Family History: States: No Known Family Hx - Social History Hx Alcohol Use: No Hx Substance Use: No - Immunization History Hx Tetanus Toxoid Vaccination: No Hx Influenza Vaccination: No Hx Pneumococcal Vaccination: No Review Of Systems Psych: Positive for: Anxiety, Other (agitation ). Negative for: Suicidal ideation Physical Exam - Physical Exam Appears: Non-toxic, Other (Cooperative, restless ) Skin: Warm, Dry Head: Atraumatic, Normacephalic Eye(s): bilateral: Normal Inspection Nose: Normal Oral Mucosa: Moist Neck: Supple Chest: Symmetrical Cardiovascular: Rhythm Regular Respiratory: Normal Breath Sounds, No Rales, No Rhonchi, No Wheezing Extremity: Normal ROM Extremity: Bilateral: Atraumatic Neurological/Psych: Oriented x3, Normal Speech Gait: Other (Pacing in the room, unable to stay still in the room) ED Course And Treatment - Laboratory Results Result Diagrams: 02/26/18 19:21 02/26/18 19:21 Lab Interpretation: No Acute Changes O2 Sat by Pulse Oximetry: 100 (RA) Pulse Ox Interpretation: Normal Progress Note: Patient ismedically cleared for psychiatric admission Medical Decision Making Medical Decision Making: Orders: - Bloodwork - Labwork - Ativan 2mg IM - Haldol 5mg IM Disposition - Disposition Disposition: HOSPITALIZED Disposition Time: 20:14 Condition: STABLE - POA Present On Arrival: None - Clinical Impression Clinical Impression: Bipolar disorder - Scribe Statement The provider has reviewed the documentation as recorded by the Scribe Kamala Dickens All medical record entries made by the Aissatouibe were at my direction and personally dictated by me. I have reviewed the chart and agree that the record accurately reflects my personal performance of the history, physical exam, medical decision making, and the department course for this patient. I have also personally directed, reviewed, and agree with the discharge instructions and disposition.
[2018-02-26 19:28] LABS: BASO # 0.1 K/uL (0.0-0.2); BASO % 0.8 % (0.0-2.0); EOS # 0.1 K/uL (0.0-0.7); EOS % 0.7 % (0.0-4.0); HEMOGLOBIN 16.2 g/dL (12.0-18.0); LYMPH # 2.3 K/uL (1.0-4.3); LYMPH % 26.6 % (20.0-40.0); MEAN CELL VOLUME 86.8 fL (80.0-94.0); MEAN CORPUSCULAR HEMOGLOBIN 29.9 pg (27.0-31.0); MEAN CORPUSCULAR HGB CONC 34.5 g/dL (33.0-37.0); MEAN PLATELET VOLUME 9.1 fL (7.2-11.7); MONO # 0.5 K/uL (0.0-0.8); MONO % 5.7 % (0.0-10.0); NEUT # 5.7 K/uL (1.8-7.0); NEUT % 66.2 % (50.0-75.0); RBC 5.42 Mil/uL (4.40-5.90); RED CELL DISTRIBUTION WIDTH 13.2 % (11.5-14.5); WHITE BLOOD COUNT 8.6 K/uL (4.8-10.8)
[2018-02-26 19:31] LABS: URINE AMORPHOUS SEDIMENT MODERATE /ul (<OCC); URINE BACTERIA RARE (<OCC); URINE BILIRUBIN NEGATIVE (NEGATIVE); URINE BLOOD NEGATIVE (NEGATIVE); URINE CLARITY Hazy (Clear); URINE COLOR Yellow (YELLOW); URINE GLUCOSE (UA) NORMAL (Normal); URINE LEUKOCYTE ESTERASE NEG Leu/uL (Negative); URINE PROTEIN NEGATIVE (NEGATIVE)
[2018-02-26 19:41] LABS: BARBITURATES, UR NEGATIVE (NEGATIVE); BENZODIAZEPINES, UR NEGATIVE (NEGATIVE); OPIATES, UR NEGATIVE (NEGATIVE); PHENCYCLIDINE, UR NEGATIVE (NEGATIVE)
[2018-02-26 19:42] LABS: ALB/GLOB RATIO 1.4 (1.0-2.1); ALBUMIN 5.1 g/dL (3.5-5.0); ALT/SGPT 38 U/L (21-72); AST/SGOT 40 U/L (17-59); BLOOD UREA NITROGEN 23 mg/dL (9-20); CALCIUM 10.1 mg/dl (8.6-10.4); GFR NON-AFRICAN AMERICAN > 60
--- NOTE | 2018-02-26 20:54 | PCM.BM ---
<Odette Sanchez - Last Filed: 02/26/18 20:51> Treatment Plan Problems - Problems identified on initial assessmt Alteration in thought Date Initiated: 02/26/18 Time Initiated: 20:55 Assessment reference: NA Status: Active Treatment assets and liabiliti Patient Assests: cooperative, educated, ADL independent, good support system - Milieu Protocol Maintain good personal hygiene: daily Encourage regular showers, daily Remind patient to perform daily oral care, daily Assist patient to perform ADL's Maintain personal safety: every shift Educate patient to report safety concerns to staff, every shift Monitor environment for contraband/sharps Medication safety: Monitor for expected outcome, potential side effects: every shift, Assess barriers to learning: every shift, Assess readiness for medication education: every shift <Erin Gee - Last Filed: 02/27/18 14:56> Family Contact Family involvement: Family/SO is involved Family contact: Patient agrees to contact - Goals for Treatment Patient goals for treatment: "I [facility] to return to [facility] ." Discharge/Continuing Care - Education Needs Education Needs: Patient Medication, Patient Diagnosis/Disease Process, Patient Coping Skills, Patient Placement options, Patient Community resources - Discharge Discharge Criteria: Free of paranoid thoughts, Normal sleep pattern, Ability to care for self, Reduction of target symptoms Discharge to:: Home, With Family - Treatment Team Participation Discussed with Family/SO: No Was Patient/Family/SO present at Treatment Team Meeting: Yes <Davey Bella - Last Filed: 02/28/18 00:01> - Diagnosis (1) Manic bipolar I disorder Status: Acute Interventions: 02/28/18 00:00 * Assess/adjust medications daily and /or as needed * See patient on an individual basis 7x/week to assess level of manic behaviors and stability * Discuss risks, benefits, side effects and alternatives of medications *
--- NOTE | 2018-02-27 16:43 | PCM.PSYCH ---
Initial Psychiatric Evaluation - Initial Psychiatric Evaluation Type of Admission: Voluntary Legal Status: Capacity Chief Complaint (in patient's own words): "I need help" History of Present Illness and Precipitating Events: Patient is a 27 year old male who is single, currently living with his parents and siblings. pt works for [employer]. Pt presenting due to feeling "thompson, anxious, angry and lonely" due to NOT taking his bipolar medications. The pt was admitted to inpatient psych at [facility] in November and was referred to [facility] but instead he went to [facility]. It is not clear but he may have dropped out b/c he missed "2 sessions." And that they did not fill his medication (Risperdal, Depakote). The pt had been labile, manicky but also at times depressed and suicidal recently. Denies SI now. Pt has symptoms of agitation, anxiety and having up and down mood. The pt denies visual or auditory hallucinations, paranoia. Pt denies smoking cigarettes, alcohol or any other drugs use. Traumatic Hx: Unremarkable Family psych Hx: Grandfather hx of Schizophrenia, Mother hx of depression, Brother hx of Bipolar d/o Medical Hx: Asthma Legal Hx: unremarkable Current Medications: Active Medications Generic Name Dose Route Start Last Admin Trade Name Freq PRN Reason Stop Dose Admin Benztropine Mesylate 1 mg 02/27/18 18:00 Cogentin PO QPM JACKIE Divalproex Sodium 1,000 mg 02/27/18 22:00 Depakote Er PO HS JACKIE Famotidine 20 mg 02/27/18 22:00 Pepcid PO HS JACKIE Haloperidol 5 mg 02/27/18 10:50 02/27/18 11:12 Haldol PO 5 mg Q4H PRN Administration Agitation Hydroxyzine HCl 50 mg 02/27/18 10:51 02/27/18 11:09 Atarax PO 50 mg Q6H PRN Administration Anxiety Lorazepam 1 mg 02/27/18 10:50 02/27/18 11:09 Ativan PO 1 mg Q6H PRN Administration severe agitation Pneumococcal Polyvalent Vaccine 0.5 ml 03/01/18 10:00 Pneumovax 23 Vaccine IM 03/01/18 10:01 .ONCE ONE Risperidone 2 mg 02/27/18 18:00 Risperdal Tab PO QPM JACKIE Past Psychiatric History - Past Psychiatric History Previous Treatment History: Inpatient Pertinent Medical Hx (Current Medical&Sleep Prob, Allergies): Allergies Allergy/AdvReac Type Severity Reaction Status Date / Time No Known Allergies Allergy Verified 02/26/18 18:35 risperiDONE [RisperDAL Tab] 3 mg PO BID #60 tab 01/02/18 Benztropine [Cogentin] 1 mg PO BID #8 tab 02/11/18 Divalproex [Depakote DR] 500 mg PO HS 02/26/18 Review of Systems - Neurological Neurological: UNREMARKABLE - Psychiatric Psychiatric: Abnormal Sleep Pattern, Anxiety, Difficulty Concentrating, Irritability, Mood Swings. absent: Anhedonia, Depression, Hallucinations, Homicidal Ideation, Hopelessness, Panic Attacks, Suicidal Ideation Mental Status Examination - Personal Presentation Personal Presentation: Looks stated age - Affect Affect: Other (labile) - Motor Activity Motor Activity: Calm - Reliability in Providing Information Reliability in Providing Information: Good - Speech Speech: Organized - Mood Mood: Other (labile) - Formal Thought Process Formal Thought Process: Loosening of associations - Obsessions/Compulsions Obsessions: No Compulsions: No - Cognitive Functions Orientation: Person, Place, Situation, Time Sensorium: Alert Attention/Concentration: Easily distracted Estimate of Intelligence: Average Judgement: Intact, as evidence by: Insight regarding need for hospitalization Memory: Recent intact, as evidence by: Ability to recall events of the day, Remote intact, as evidenced by: Abilit to recall sig. life events - Risk Risk: Diminished functioning - Strength & Assets Inventory Strength & Assets Inventory: Family support - Limitations Limitations: Other DSM 5 DX - DSM 5 DSM 5 Diagnosis: Schizoaffective d/o - bipolar type - Recommended/Plan of Treatment Treatment Recommendations and Plan of Treatment: Risperidone 2mg for mood swings Depakote ER 1000 for nw fr mood swings Lorazepam 1mg for severe agitation prn Haldol 5mg for agitation prn As need medications All risks, benefits and alternatives of the meds discussed, and the pt agreed and understood. Attend groups and activities Individual therapy daily Psychoeducation and support daily Encourage compliance with meds and after care Refer to outpatient program Teach healthy lifestyle methods, i.e. diet, exercise, meditation 33 min Projected ELOS: 5 days Prognosis: good w treatment
[2018-02-27] MEDS: Divalproex 500 mg ER Tab PO SCH (22:07)
--- NOTE | 2018-02-28 10:09 | PCM.PYCHPN ---
Psychiatric Progress Note - Psychiatric Progress Note Patient seen today, length of contact: 16 min Patient Chief Complaint: "I am not well" Problems Identified/Issues Discussed: The pt is seen, chart reviewed, case discussed with staff. The pt is compliant with medications and reports no side-effects. Symptoms are improving but needs more time to stabilize. Pt attends groups and activities. Support given, psycho-education provided. After care discussed. Medication Change: Yes (increse depakote) Medical Record Reviewed: Yes Mental Status Examination - Cognitive Function Orientation: Person, Place, Situation, Time Memory: Impaired Attention: Poor Concentration: Poor Association: Loose Fund of Knowledge: Poor - Mood Mood: Anxious, Other (labile) - Affect Affect: Constricted, Other (labile) - Speech Speech: Appropriate - Formal Thought Process Formal Thought Process: Loosening of associations - Suicidal Ideation Suicidal Ideation: No - Homicidal Ideation Homicidal Ideation: No Goal/Treatment Plan - Goal/Treatment Plan Need for Continued Stay: Severe depression anxiety, Discharge may exacerbated symptoms, Severe functional impairment Progress Toward Problem(s) and Goals/Treatment Plan: Risperidone 2mg for mood swings Depakote ER 1000 for nw fr mood swings, increased to 1500 Lorazepam 1mg for severe agitation prn Haldol 5mg for agitation prn As need medications All risks, benefits and alternatives of the meds discussed, and the pt agreed and understood. Attend groups and activities Individual therapy daily Psychoeducation and support daily Encourage compliance with meds and after care Refer to outpatient program Teach healthy lifestyle methods, i.e. diet, exercise, meditation Estimated Date of D/C: 03/03/18
[2018-02-28] MEDS: Divalproex 500 mg ER Tab PO SCH ×3 (10:49→21:46)
[2018-03-01] MEDS: Divalproex 500 mg ER Tab PO SCH ×2 (09:58→21:07)
[2018-03-01] MEDS ORDERED: Pneumococcal 23-Valent Vaccine IM ONE (10:00)
--- NOTE | 2018-03-01 15:48 | PCM.PYCHPN ---
Psychiatric Progress Note - Psychiatric Progress Note Patient seen today, length of contact: 15 min Patient Chief Complaint: "I am better I think" Problems Identified/Issues Discussed: The pt is seen, chart reviewed, case discussed with staff. The pt is compliant with medications and reports no side-effects. Staff report that he is still paranoid, manicky - not sleeping at night, irate at times He is also secretive and defensive Support given. CBT used Medication Change: Yes (increse risperdal) Medical Record Reviewed: Yes Mental Status Examination - Cognitive Function Orientation: Person, Place, Situation, Time Memory: Impaired Attention: Poor Concentration: Poor Association: Loose Fund of Knowledge: Poor - Mood Mood: Anxious, Other (labile) - Affect Affect: Constricted, Other (labile) - Speech Speech: Appropriate - Formal Thought Process Formal Thought Process: Loosening of associations - Suicidal Ideation Suicidal Ideation: No - Homicidal Ideation Homicidal Ideation: No Goal/Treatment Plan - Goal/Treatment Plan Need for Continued Stay: Severe depression anxiety, Discharge may exacerbated symptoms, Severe functional impairment Progress Toward Problem(s) and Goals/Treatment Plan: Risperidone 2mg for mood swings Depakote ER 1000 for nw fr mood swings, increased to 1500 Lorazepam 1mg for severe agitation prn Haldol 5mg for agitation prn As need medications All risks, benefits and alternatives of the meds discussed, and the pt agreed and understood. Attend groups and activities Individual therapy daily Psychoeducation and support daily Encourage compliance with meds and after care Refer to outpatient program Teach healthy lifestyle methods, i.e. diet, exercise, meditation Estimated Date of D/C: 03/03/18
[2018-03-02] MEDS: Divalproex 500 mg ER Tab PO SCH ×2 (10:47→21:04)
--- NOTE | 2018-03-02 16:31 | PCM.PYCHPN ---
Psychiatric Progress Note - Psychiatric Progress Note Patient seen today, length of contact: 15 min Patient Chief Complaint: "I am not sleeping well" Problems Identified/Issues Discussed: The pt is seen, chart reviewed, case discussed with staff. The pt is compliant with medications and reports no side-effects. Staff report that he is still paranoid, manicky - Pt still having problems sleeping at night. States his mood has improved Support given. CBT used Medication Change: Yes (increse risperdal) Medical Record Reviewed: Yes Mental Status Examination - Cognitive Function Orientation: Person, Place, Situation, Time Memory: Impaired Attention: Poor Concentration: Poor Association: Loose Fund of Knowledge: Poor - Mood Mood: Anxious, Other (labile) - Affect Affect: Constricted, Other (labile) - Speech Speech: Appropriate - Formal Thought Process Formal Thought Process: Loosening of associations - Suicidal Ideation Suicidal Ideation: No - Homicidal Ideation Homicidal Ideation: No Goal/Treatment Plan - Goal/Treatment Plan Need for Continued Stay: Severe depression anxiety, Discharge may exacerbated symptoms, Severe functional impairment Progress Toward Problem(s) and Goals/Treatment Plan: Risperidone 2mg for mood swings Depakote ER 1000 for nw fr mood swings, increased to 1500 Lorazepam 1mg for severe agitation prn Haldol 5mg for agitation prn As need medications All risks, benefits and alternatives of the meds discussed, and the pt agreed and understood. Attend groups and activities Individual therapy daily Psychoeducation and support daily Encourage compliance with meds and after care Refer to outpatient program Teach healthy lifestyle methods, i.e. diet, exercise, meditation Estimated Date of D/C: 03/03/18
[2018-03-03 08:34] LABS: BASO % 0.7 % (0.0-2.0); EOS # 0.1 K/uL (0.0-0.7); EOS % 1.8 % (0.0-4.0); HEMOGLOBIN 14.9 g/dL (12.0-18.0); LYMPH # 2.8 K/uL (1.0-4.3); LYMPH % 44.5 % (20.0-40.0); MEAN CELL VOLUME 86.4 fL (80.0-94.0); MEAN CORPUSCULAR HEMOGLOBIN 30.6 pg (27.0-31.0); MEAN CORPUSCULAR HGB CONC 35.4 g/dL (33.0-37.0); MEAN PLATELET VOLUME 8.7 fL (7.2-11.7); MONO # 0.5 K/uL (0.0-0.8); MONO % 7.8 % (0.0-10.0); NEUT # 2.8 K/uL (1.8-7.0); NEUT % 45.2 % (50.0-75.0); NRBC % 0.3 % (0.0-2.0); RBC 4.87 Mil/uL (4.40-5.90); WHITE BLOOD COUNT 6.2 K/uL (4.8-10.8)
[2018-03-03 08:44] LABS: ALB/GLOB RATIO 1.7 (1.0-2.1); ALBUMIN 4.4 g/dL (3.5-5.0); ALT/SGPT 45 U/L (21-72); AST/SGOT 28 U/L (17-59); BLOOD UREA NITROGEN 19 mg/dL (9-20); CALCIUM 9.5 mg/dl (8.6-10.4); GFR NON-AFRICAN AMERICAN > 60; HDL CHOLESTEROL 34 mg/dL (30-70)
[2018-03-03 08:46] LABS: LDL CHOLESTEROL 75 mg/dL (0-129)
[2018-03-03] MEDS: Divalproex 500 mg ER Tab PO SCH ×2 (09:19→21:06)
--- NOTE | 2018-03-03 14:33 | PCM.PYCHPN ---
Psychiatric Progress Note - Psychiatric Progress Note Patient seen today, length of contact: 15 min Patient Chief Complaint: "I'm ready to go home" Problems Identified/Issues Discussed: The pt is seen, chart reviewed, case discussed with staff. The pt is compliant with medications and reports no side-effects. Staff report that he is still paranoid, manicky, and anxious - Pt still has trouble sleeping. Wakes up in the middle of the night multiple times. Support given. CBT used Medication Change: Yes (increse risperdal) Medical Record Reviewed: Yes Mental Status Examination - Cognitive Function Orientation: Person, Place, Situation, Time Memory: Impaired Attention: Poor Concentration: Poor Association: Loose Fund of Knowledge: Poor - Mood Mood: Anxious, Other (labile) - Affect Affect: Constricted, Other (labile) - Speech Speech: Appropriate - Formal Thought Process Formal Thought Process: Loosening of associations - Suicidal Ideation Suicidal Ideation: No - Homicidal Ideation Homicidal Ideation: No Goal/Treatment Plan - Goal/Treatment Plan Need for Continued Stay: Severe depression anxiety, Discharge may exacerbated symptoms, Severe functional impairment Progress Toward Problem(s) and Goals/Treatment Plan: Risperidone 2mg for mood swings Depakote ER 1000 for nw fr mood swings, increased to 1500 Lorazepam 1mg for severe agitation prn Haldol 5mg for agitation prn As need medications All risks, benefits and alternatives of the meds discussed, and the pt agreed and understood. Attend groups and activities Individual therapy daily Psychoeducation and support daily Encourage compliance with meds and after care Refer to outpatient program Teach healthy lifestyle methods, i.e. diet, exercise, meditation Estimated Date of D/C: 03/03/18
[2018-03-04] MEDS: Divalproex 500 mg ER Tab PO SCH ×2 (10:01→21:02)
--- NOTE | 2018-03-04 16:59 | PCM.PYCHPN ---
Psychiatric Progress Note - Psychiatric Progress Note Patient seen today, length of contact: 15 min Patient Chief Complaint: "I sleep better" Problems Identified/Issues Discussed: The pt is seen, chart reviewed, case discussed with staff. Support and psychoeducation given, CBT and CO used briefly No new symptoms reported, improving slowly and needs more time No SEs from medications, risks discussed. After care discussed Medication Change: Yes (increse risperdal) Medical Record Reviewed: Yes Mental Status Examination - Cognitive Function Orientation: Person, Place, Situation, Time Memory: Impaired Attention: Poor Concentration: Poor Association: Loose Fund of Knowledge: Poor - Mood Mood: Anxious, Other (labile) - Affect Affect: Constricted, Other (labile) - Speech Speech: Appropriate - Formal Thought Process Formal Thought Process: Loosening of associations - Suicidal Ideation Suicidal Ideation: No - Homicidal Ideation Homicidal Ideation: No Goal/Treatment Plan - Goal/Treatment Plan Need for Continued Stay: Severe depression anxiety, Discharge may exacerbated symptoms, Severe functional impairment Progress Toward Problem(s) and Goals/Treatment Plan: Risperidone 2mg for mood swings Depakote ER 1000 for nw fr mood swings, increased to 1500 Lorazepam 1mg for severe agitation prn Haldol 5mg for agitation prn As need medications All risks, benefits and alternatives of the meds discussed, and the pt agreed and understood. Attend groups and activities Individual therapy daily Psychoeducation and support daily Encourage compliance with meds and after care Refer to outpatient program Teach healthy lifestyle methods, i.e. diet, exercise, meditation Estimated Date of D/C: 03/03/18
[2018-03-05 06:46] VITALS: RESP 20
--- NOTE | 2018-03-05 10:12 | PCM.PYCHPN ---
Psychiatric Progress Note - Psychiatric Progress Note Patient seen today, length of contact: 15 min Medication Change: Yes (increse risperdal) Medical Record Reviewed: Yes Mental Status Examination - Cognitive Function Orientation: Person, Place, Situation, Time Memory: Impaired Attention: Poor Concentration: Poor Association: Loose Fund of Knowledge: Poor - Mood Mood: Anxious, Other (labile) - Affect Affect: Constricted, Other (labile) - Speech Speech: Appropriate - Formal Thought Process Formal Thought Process: Loosening of associations - Suicidal Ideation Suicidal Ideation: No - Homicidal Ideation Homicidal Ideation: No Goal/Treatment Plan - Goal/Treatment Plan Need for Continued Stay: Severe depression anxiety, Discharge may exacerbated symptoms, Severe functional impairment Estimated Date of D/C: 03/03/18
[2018-03-05] MEDS: Divalproex 500 mg ER Tab PO SCH ×2 (10:14→21:21)
[2018-03-06 06:17] VITALS: BP 116/66; PULSE 64; TEMP 97.5; O2SAT 99
--- NOTE | 2018-03-06 08:30 | PCM.BM ---
Treatment Plan Problems - Problems identified on initial assessmt Alteration in thought Date Initiated: 02/26/18 Time Initiated: 20:55 Assessment reference: NA Status: Active Treatment assets and liabiliti Patient Assests: cooperative, educated, ADL independent, good support system - Milieu Protocol Maintain good personal hygiene: daily Encourage regular showers, daily Remind patient to perform daily oral care, daily Assist patient to perform ADL's Maintain personal safety: every shift Educate patient to report safety concerns to staff, every shift Monitor environment for contraband/sharps Medication safety: Monitor for expected outcome, potential side effects: every shift, Assess barriers to learning: every shift, Assess readiness for medication education: every shift Milieu Narrative: Risperidone 2mg for mood swings Depakote ER 1000 for nw fr mood swings, increased to 1500 Lorazepam 1mg for severe agitation prn Haldol 5mg for agitation prn As need medications All risks, benefits and alternatives of the meds discussed, and the pt agreed and understood. Attend groups and activities Individual therapy daily Psychoeducation and support daily Encourage compliance with meds and after care Refer to outpatient program Teach healthy lifestyle methods, i.e. diet, exercise, meditation Family Contact Family involvement: Family/SO is involved Family contact: Patient agrees to contact - Goals for Treatment Patient goals for treatment: "[facility] to return to [facility] ." Discharge/Continuing Care - Education Needs Education Needs: Patient Medication, Patient Diagnosis/Disease Process, Patient Coping Skills, Patient Placement options, Patient Community resources - Discharge Discharge Criteria: Free of paranoid thoughts, Normal sleep pattern, Ability to care for self, Reduction of target symptoms Discharge to:: Home, With Family - Treatment Team Participation Patient/Family/SO Statement: Risperidone 2mg for mood swings Depakote ER 1000 for nw fr mood swings, increased to 1500 Lorazepam 1mg for severe agitation prn Haldol 5mg for agitation prn As need medications All risks, benefits and alternatives of the meds discussed, and the pt agreed and understood. Attend groups and activities Individual therapy daily Psychoeducation and support daily Encourage compliance with meds and after care Refer to outpatient program Teach healthy lifestyle methods, i.e. diet, exercise, meditation Discussed with Family/SO: No Was Patient/Family/SO present at Treatment Team Meeting: Yes Treatment Plan Review - Problem Alteration in thought Time Initiated: 20:55 - Discharge / Continuing Care Discharge to:: Home, With Family Behavioral Health Services: Partial hospital Health Needs: Follow up care/test, Medications/Rx
[2018-03-06] MEDS: Divalproex 500 mg ER Tab PO SCH (09:07)
--- NOTE | 2018-03-06 10:10 | PCM.PYCHDC ---
Mental Status Examination - Mental Status Examination Orientation: Person Discharge Summary - Discharge Note Laboratory Data: Abnormal Lab Results 03/05/18 09:09 Valproic Acid 84.1 Consultations:: List each consultation separately and include: 1. Reason for request. 2. Findings. 3. Follow-up Summary of Hospital Course include:: 1. Description of specific treatment plan utilized for patients during their course of treatmen. 2. Summarize the time- course for resolution of acute symptoms and/or regressed behaviors. 3. Describe issues identified and worked on during hospitalization. 4. Describe medication utilized. 5. Describe medical problems identified and treated. 6. Reassessment of suicide risk Summary of Hospital Course: Patient is a 27 year old male who is single, currently living with his parents and siblings. pt works for [employer] Pt presenting due to feeling "thompson, anxious, angry and lonely" due to NOT taking his bipolar medications. The pt was admitted to inpatient psych at [facility] in November and was referred to [facility] but instead he went to [facility]. It is not clear but he may have dropped out b/c he missed "2 sessions." And that they did not fill his medication (Risperdal, Depakote). The pt had been labile, manicky but also at times depressed and suicidal recently. Denies SI now. Pt has symptoms of agitation, anxiety and having up and down mood. The pt denies visual or auditory hallucinations, paranoia. Pt denies smoking cigarettes, alcohol or any other drugs use. Traumatic Hx: Unremarkable Family psych Hx: Grandfather hx of Schizophrenia, Mother hx of depression, Brother hx of Bipolar d/o Medical Hx: Asthma Legal Hx: unremarkable MCG - Diagnosis (1) Manic bipolar I disorder Current Visit: No Status: Acute - Final Diagnosis (DSM 5) Condition upon Discharge: STABLE Disposition: HOME/ ROUTINE Follow-up Treatment Plan: Risperidone 2mg for mood swings Depakote ER 1000 for nw fr mood swings, increased to 1500 Lorazepam 1mg for severe agitation prn Haldol 5mg for agitation prn As need medications All risks, benefits and alternatives of the meds discussed, and the pt agreed and understood. Attend groups and activities Individual therapy daily Psychoeducation and support daily Encourage compliance with meds and after care Refer to outpatient program Teach healthy lifestyle methods, i.e. diet, exercise, meditation Prescriptions/Medication Reconciliation: Benztropine [Cogentin] 1 mg PO QPM #30 tab Divalproex [Depakote ER] 1,000 mg PO BID #60 ter risperiDONE [RisperDAL Tab] 3 mg PO HS #30 tab traZODone [Desyrel] 100 mg PO HS #30 tab
== END 2018-03-06 11:46 | disposition home or self-care (01) | DRG 430 ==
LOC: C.ER 18:16 → C.5E 20:14
PROVIDERS: ADMIT Psychiatry & Neurology Psychiatry; ATTEND Psychiatry & Neurology Psychiatry
PROC: GZHZZZZ Group Psychotherapy (ICD-10-PCS; principal; 2018-02-26)
PROC: GZ56ZZZ Individual Psychotherapy, Supportive (ICD-10-PCS; 2018-02-26)
DX: F31.10 Bipolar disorder, current episode manic without psychotic features, unspecified (principal); J45.909 Unspecified asthma, uncomplicated; Z91.14 Patient's other noncompliance with medication regimen; F41.9 Anxiety disorder, unspecified